=== PATIENT | female | born 1975 | race Caucasian/White ===

== ENCOUNTER 2017-01-30 07:10 | Emergency (ER) | payer MEDICAID, OTHER ==
[~2017-01-30] VITALS: Ht 162.6 cm; Wt 54.4 kg
[~2017-01-30 07:10] MED LIST: ALPR2TAB2 PO; HYDR8TAB2 PO; LEVO500T15 PO
[2017-01-30 07:22] VITALS: BP 116/62
== END 2017-01-30 07:54 | disposition home or self-care (01) ==
LOC: ER 07:13
DX: L02.416 Cutaneous abscess of left lower limb (principal); L03.116 Cellulitis of left lower limb; F17.200 Nicotine dependence, unspecified, uncomplicated
CPT/HCPCS: A4606; A6402; Z7610

== ENCOUNTER 2017-09-20 08:17 | Emergency (ER) | payer BC, MEDICAID ==
[~2017-09-20] VITALS: Ht 162.6 cm; Wt 57.6 kg
[~2017-09-20 08:17] MED LIST changes: -LEVO500T15 PO; +LEVO500T75 PO
[2017-09-20 08:23] VITALS: BP 135/72
== END 2017-09-20 09:54 | disposition home or self-care (01) ==
LOC: ER 08:21
DX: H10.213 Acute toxic conjunctivitis, bilateral (principal); F17.200 Nicotine dependence, unspecified, uncomplicated
CPT/HCPCS: 99282; A4606; Z7610; J7030